=== PATIENT | female | born 1995 | race Caucasian/White ===

== ENCOUNTER 2020-01-08 00:54 | Inpatient (IN) | payer BC ==
[~2020-01-08 00:54] MED LIST: Lidocaine 1.5% with EPINEPHrine 1:200,000 5 ML Amp ONE
[2020-01-08] MEDS ORDERED: Sodium Chloride 0.9% 10 ML Syringe FLUSH PRN (11:19)
[2020-01-08] MEDS ORDERED: Ondansetron 4 MG/2 ML SDV IVPUSH PRN ×2 (11:19→12:46)
[2020-01-08] MEDS ORDERED: Ampicillin 2 GM in Sodium Chloride 0.9% 100 ML IV ONE (11:30)
[2020-01-08] MEDS ORDERED: Oxytocin/Lactated Ringers 10 UNIT/1,000 ML BAG IV SCH (11:30)
[2020-01-08] MEDS: Lactated Ringers 1,000 ML IV SCH ×4 (11:37→18:56)
[2020-01-08] MEDS ORDERED: ePHEDrine 50 MG/ML SDV IVPUSH PRN (12:46)
[2020-01-08] MEDS ORDERED: fentaNYL 100 MCG/2 ML SDV EPIDUR PRN (12:46)
--- NOTE | 2020-01-08 12:48 | PCM.PREANE ---
<Magdalena Kaur Erwin - Last Filed: 01/08/20 13:03> Preanesthetic Assessment - Anesthesia/Transfusion/Family Hx Anesthesia History: No Prior Anesthesia Family History of Anesthesia Reaction: No Transfusion History: No Prior Transfusion(s) Intubation History: Unknown - Physical Assessment NPO Status Date: 01/08/20 Vital Signs: Last Vital Signs Temp 98.8 F 01/08/20 09:07 Pulse Resp 14 01/08/20 09:07 BP 111/76 01/08/20 09:07 Pulse Ox 100 01/08/20 09:07 Height: 1.63 m Weight: 81.193 kg ASA Class: 2 Mental Status: Alert & Oriented x3 - Lab Values: Laboratory Last Values WBC 15.46 K/mm3 (3.98-10.04) H 01/08/20 11:37 RBC 4.50 M/mm3 (3.98-5.22) 01/08/20 11:37 Hgb 13.3 gm/dl (11.2-15.7) 01/08/20 11:37 Hct 38.3 % (34.1-44.9) 01/08/20 11:37 MCV 85.1 fl (79.4-94.8) 01/08/20 11:37 MCH 29.6 pg (25.6-32.2) 01/08/20 11:37 MCHC 34.7 g/dl (32.2-35.5) 01/08/20 11:37 RDW Std Deviation 41.9 fL (36.4-46.3) 01/08/20 11:37 Plt Count 169 K/mm3 (182-369) L 01/08/20 11:37 MPV 11.8 fl (9.4-12.3) 01/08/20 11:37 Neut % (Auto) 86.0 % (34.0-71.1) H 01/08/20 11:37 Lymph % (Auto) 8.2 % (19.3-51.7) L 01/08/20 11:37 [place] % (Auto) 4.6 % (4.7-12.5) L 01/08/20 11:37 Eos % (Auto) 0.8 (0.7-5.8) 01/08/20 11:37 Baso % (Auto) 0.2 % (0.1-1.2) 01/08/20 11:37 Neut # (Auto) 13.30 K/mm3 (1.56-6.13) H 01/08/20 11:37 Lymph # (Auto) 1.26 K/mm3 (1.18-3.74) 01/08/20 11:37 [place] # (Auto) 0.71 K/mm3 (0.24-0.36) H 01/08/20 11:37 Eos # (Auto) 0.13 K/mm3 (0.04-0.36) 01/08/20 11:37 Baso # (Auto) 0.03 K/mm3 (0.01-0.08) 01/08/20 11:37 Manual Slide Review Normal smear 01/08/20 11:37 Urine Color Light yellow (Yellow) 01/08/20 09:45 Urine Appearance Clear (Clear) 01/08/20 09:45 Urine pH 7.0 (5.0-8.0) 01/08/20 09:45 Ur Specific [place] 1.020 (1.005-1.030) 01/08/20 09:45 Urine Protein Negative (Negative) 01/08/20 09:45 Urine Glucose (UA) Negative (Negative) 01/08/20 09:45 Urine Ketones Negative (Negative) 01/08/20 09:45 Urine Occult Blood 1+ (Negative) H 01/08/20 09:45 Urine Nitrite Negative (Negative) 01/08/20 09:45 Urine Bilirubin Negative (Negative) 01/08/20 09:45 Urine Urobilinogen 0.2 (0.2-1.0) 01/08/20 09:45 Ur Leukocyte Esterase Negative (Negative) 01/08/20 09:45 Urine RBC 0-5 /hpf (0-5) 01/08/20 09:45 Urine WBC 0-5 /hpf (0-5) 01/08/20 09:45 Ur Squamous Epith Cells 0-5 /hpf (0-5) 01/08/20 09:45 Urine Bacteria Rare /hpf (FEW) 01/08/20 09:45 Urine Mucus Not seen /hpf (FEW) 01/08/20 09:45 Above labs reviewed and noted and within acceptable ranges to proceed with epidural if desired. 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: - SUBSTANCE USE Smoking Status *Q: Never Smoker Second Hand Smoke Exposure: No Recreational Drug Use History: No - HOME MEDS Home Medications: Home Meds Calcium Carbonate/Vitamin D3 [Calcium 500 + Vit D 200 Tablet] 1 each PO DAILY [History] [id number]/Iron Fumarate/FA/DSS [ 19 Tablet] 1 each PO DAILY 01/08/20 [ History] - CURRENT (IN HOUSE) MEDS Current Meds: Current Medications Ephedrine Sulfate (Ephedrine Sulfate) 5 mg IVPUSH ASDIRECTED PRN PRN Reason: Hypotension Fentanyl (Sublimaze) 100 mcg EPIDUR Q3H PRN PRN Reason: Pain Fentanyl/Bupivacaine HCl (Fentanyl/Bupivacaine/Ns 2 Mcg-0.125% 100 Ml) 100 ml EPIDUR ASDIRECTED SYDNI Lactated Ringer's (Ringers, Lactated) 1,000 mls @ 100 mls/hr IV ASDIRECTED SYDNI Last Admin: 01/08/20 11:37 Dose: 100 mls/hr Ampicillin Sodium 1 gm/ Sodium (Chloride) 100 mls @ 200 mls/hr IV Q4H SYDNI Oxytocin/Lactated Ringer's (Pitocin In Lr 10 Units/1,000 Ml) 10 unit in 1,000 mls @ 100 mls/hr IV .CONTINUOUS SYDNI Ondansetron HCl (Zofran) 4 mg IVPUSH Q4H PRN PRN Reason: Nausea/Vomiting Ondansetron HCl (Zofran) 4 mg IVPUSH ONETIME PRN PRN Reason: Nausea/Vomiting Sodium Chloride (Saline Flush) 10 ml FLUSH ASDIRECTED PRN PRN Reason: Keep Vein Open Discontinued Medications Ampicillin Sodium 2 gm/ Sodium (Chloride) 100 mls @ 200 mls/hr IV ONETIME ONE Stop: 01/08/20 11:59 Last Admin: 01/08/20 11:38 Dose: 200 mls/hr <Aden Espinoza - Last Filed: 01/08/20 13:14> Preanesthetic Assessment - Anesthesia/Transfusion/Family Hx Anesthesia History: No Prior Anesthesia Family History of Anesthesia Reaction: No Transfusion History: No Prior Transfusion(s) - Review of Systems General: No Symptoms Pulmonary: No Symptoms Cardiovascular: No Symptoms Gastrointestinal: No Symptoms Neurological: No Symptoms Other: Reports: None - Physical Assessment Mental Status: Alert & Oriented x3 Thyro-Mental Finger Breadths: 3 Mouth Opening Finger Breadths: 3 ROM/Head Extension: Full Lungs: Clear to Auscultation, Normal Respiratory Effort Cardiovascular: Regular Rate, Regular Rhythm - Acknowledgements Anesthesia Type Planned: Epidural Pt an Appropriate Candidate for the Planned Anesthesia: Yes Alternatives and Risks of Anesthesia Discussed w Pt/Guardian: Yes Pt/Guardian Understands and Agrees with Anesthesia Plan: Yes PreAnesthesia Questionnaire - Past Health History Medical/Surgical History: Denies Medical/Surgical History
[2020-01-08] MEDS: Bupivacaine/fentaNYL/NS 100 ML Bag EPIDUR SCH ×2 (13:18→23:00)
--- NOTE | 2020-01-08 14:21 | PCM.LDHP ---
L&D History of Present Illness - General Date of Service: 01/08/20 Admit Problem/Dx: Patient Status Order with Admit Dx/Problem 01/08/20 08:31 Patient Status [ADT] Routine Admission Diagnosis/Problem Admission Diagnosis/Problem 01/08/20 14:13 Manuela is a 24-year-old 1 para 0 white female who is admitted in early labor at 37-4/7 weeks gestational age with an ALONDRA of 01/25/2020. She made cervical change from 1 cm in clinic to 3 cm, 90% effaced, very soft, -3 station , anterior position. Source of Information: Patient History Limitations: Reports: No Limitations - History of Present Illness Introduction:: Manuela is a 24-year-old 1 para 0 white female who is admitted in early labor at 37-4/7 weeks gestational age with an ALONDRA of 01/25/2020. She made cervical change from 1 cm in clinic to 3 cm, 90% effaced, very soft, -3 station , anterior position.Last evening at approximately 2100 hrs. on 01/07/2020. She is unable sleep during the course of the night. Contractions increased every 3-5 minutes by this a.m. On last evaluation in clinic her cervix was closed, 50% effaced, firm, mid position and -3 on 01/06/2020. She was uncomfortable contractions. heart tones are reassuring. We'll be doing history 1 para 0. ALONDRA 01/25/2020 is based upon a certain last menstrual which started on 04/20/2019 and was supported by 2 ultrasounds done on 07/13/2019 and 09/14/2019. Patient's menarche was at age 12. Cycles every 28 days. She has monthly cycles. She is not using any control time conception. A final ALONDRA of 04/20/2019 was certain. course. Patient was seen on a very regular basis throughout the course of the . 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 Her first visit was on 07/13/2019 at 12 weeks gestational age. She was seen regularly with normal fundal height growth, normal vital signs and an increase in weight from a pre-gravid weight of 169 to a final weight of 184 for an 11 pound weight gain. Patient plans to breast-feed. She desires an epidural in labor and delivery. laboratory testing shows blood to be A+ with a negative VT screen. Hemoglobin is 15.2 g/dL and first visit. Platelets were 217,000 at that time. She is rubella immune. Hepatitis B surface antigen and HIV assays were both negative. Chlamydia and gonorrhea assays were both negative. She is rubella immune. Second trimester labs showed hemoglobin of 12.6 g/dL. Platelets are 174,000. One-hour GTT was elevated at 145 but her 3R GTT was normal with a fasting blood sugar of 85 mg/dL, 1 hour glucose was 179, 2 hour glucose of 137 and a three-hour glucose of 58. RPR on 07/13/2019 was nonreactive. Group B strep screen was positive. Allergies: None Medications: 1. vitamins 1 daily 2. Calcium 500 mg tablets plus vitamin D daily Past medical history unremarkable past surgical history: Unremarkable Family history: Mother is alive and well as is her father. Maternal grandmother is secondary to heart disease at age 75. Maternal grandfather secondary to motor vehicle accident. Paternal grandmother and paternal grandfather secondary to cancertypes unknown. There is no other family history of cancer. No family history of bleeding or blood clotting disorders, anesthesia problems or related issues. Social history: Patient is . is [place]. 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 She does not use any significant most alcohol, drugs or tobacco. She is a college graduate. She and her live in [place], [place]. Review of systems: In general patient has no complaints than contractions which kept her awake. She is reporting good activity.. Skin: Negative Lungs: No infectious symptoms or shortness of breath Cardiovascular: No chest pain or exercise intolerance Breasts: Changes associated with .. GI: Negative : body habitus changes Musculoskeletal: Negative Neurological: Negative In general the patient is well-developed, well-nourished, pleasant female of stated age in minimal discomfort secondary to contractions. Vital signs are stable. Her blood pressure last evaluation clinic was 96/72. Weight was 180.6. heart rate is 132. Her weight prior to was 169. Height is 5 feet 4 inches. Prepregnancy body mass index was 28.3. Skin is warm dry without lesions. HEENT, neck and back within normal limits. Lungs are clear with good breath sounds in all lung alvarado. Cardiovascular exam shows regular and rhythm without murmurs. Abdomen is gravid with last fundal height in clinic 36 cm. Baby in vertex presentation.. Genital digital exam as reported above.. Extremities and neurological exam are grossly within normal limits. 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: Social & Family History - Family History Family Medical History: Noncontributory - Tobacco Use Smoking Status *Q: Never Smoker Second Hand Smoke Exposure: No - Recreational Drug Use Recreational Drug Use: No H&P Review of Systems - Review of Systems: Review Of Systems: See Below L&D Exam - Exam Exam: See Below - Vital Signs Vital Signs: Last Vital Signs Temp 37.1 C 01/08/20 09:07 Pulse Resp 14 01/08/20 09:07 BP 111/76 01/08/20 09:07 Pulse Ox 100 01/08/20 09:07 Weight: 81.193 kg - Patient Data Lab Results Last 24 hrs: Laboratory Results - last 24 hr 01/08/20 01/08/20 Range/Units 09:45 11:37 WBC 15.46 H (3.98-10.04) K/mm3 RBC 4.50 (3.98-5.22) M/mm3 Hgb 13.3 (11.2-15.7) gm/dl Hct 38.3 (34.1-44.9) % MCV 85.1 (79.4-94.8) fl MCH 29.6 (25.6-32.2) pg MCHC 34.7 (32.2-35.5) g/dl RDW Std Deviation 41.9 (36.4-46.3) fL Plt Count 169 L (182-369) K/mm3 MPV 11.8 (9.4-12.3) fl Neut % (Auto) 86.0 H (34.0-71.1) % Lymph % (Auto) 8.2 L (19.3-51.7) % [place] % (Auto) 4.6 L (4.7-12.5) % Eos % (Auto) 0.8 (0.7-5.8) Baso % (Auto) 0.2 (0.1-1.2) % Neut # (Auto) 13.30 H (1.56-6.13) K/mm3 Lymph # (Auto) 1.26 (1.18-3.74) K/mm3 [place] # (Auto) 0.71 H (0.24-0.36) K/mm3 Eos # (Auto) 0.13 (0.04-0.36) K/mm3 Baso # (Auto) 0.03 (0.01-0.08) K/mm3 Manual Slide Review Normal smear Urine Color Light yellow (Yellow) Urine Appearance Clear (Clear) Urine pH 7.0 (5.0-8.0) Ur Specific [place] 1.020 (1.005-1.030) Urine Protein Negative (Negative) Urine Glucose (UA) Negative (Negative) Urine Ketones Negative (Negative) Urine Occult Blood 1+ H (Negative) Urine Nitrite Negative (Negative) Urine Bilirubin Negative (Negative) Urine Urobilinogen 0.2 (0.2-1.0) Ur Leukocyte Esterase Negative (Negative) Urine RBC 0-5 (0-5) /hpf Urine WBC 0-5 (0-5) /hpf Ur Squamous Epith Cells 0-5 (0-5) /hpf Urine Bacteria Rare (FEW) /hpf Urine Mucus Not seen (FEW) /hpf Result Diagrams: 01/08/20 11:37 Problem List Initiated/Reviewed/Updated: Yes Orders Last 24hrs: Active Orders 24 hr Category Date Time Status Patient Status [ADT] Routine ADT 01/08/20 08:31 Active Activity as Tolerated [RC] PFP Care 01/08/20 11:19 Active Communication Order [RC] ASDIRECTED Care 01/08/20 11:19 Active Heart Tones [RC] ASDIRECTED Care 01/08/20 11:19 Active Non Stress Test [RC] PER UNIT ROUTINE Care 01/08/20 08:31 Active Non Stress Test [RC] PER UNIT ROUTINE Care 01/08/20 11:19 Active Notify Provider [RC] ASDIRECTED Care 01/08/20 12:46 Active Notify Provider [RC] PFP Care 01/08/20 11:19 Active Notify Provider [RC] PRN Care 01/08/20 11:19 Active Oxygen Therapy [RC] ASDIRECTED Care 01/08/20 12:46 Active Peripheral IV Care [RC] . DIRECTED Care 01/08/20 11:19 Active Pulse Oximetry [RC] ASDIRECTED Care 01/08/20 12:46 Active Vital Signs [RC] PER UNIT ROUTINE Care 01/08/20 08:31 Active Vital Signs [RC] PER UNIT ROUTINE Care 01/08/20 11:19 Active Regular Diet [DIET] Diet 01/08/20 Lunch Active BLOOD BANK HOLD SPECIMEN [BBK] Stat Lab 01/08/20 11:19 Ordered RAPID PLASMA REAGIN,RPR [CHEM] Routine Lab 01/08/20 11:37 Received Ampicillin 1 gm Med 01/08/20 15:30 Active Sodium Chloride 0.9% [Normal Saline] 100 ml IV Q4H Bupivacaine/fentaNYL/NS [fentaNYL/Bupivacaine/NS 2 MCG- Med 01/08/20 13:00 Active 0.125% 100 ML] 100 ml EPIDUR ASDIRECTED Lactated Ringers [Ringers, Lactated] 1,000 ml Med 01/08/20 11:30 Active IV ASDIRECTED Ondansetron [Zofran] Med 01/08/20 12:46 Active 4 mg IVPUSH ONETIME PRN Ondansetron [Zofran] Med 01/08/20 11:19 Active 4 mg IVPUSH Q4H PRN Oxytocin/Lactated Ringers [Pitocin in LR 10 Units/1,000 Med 01/08/20 11:30 Active ML] 10 unit in 1,000 ml IV .CONTINUOUS Sodium Chloride 0.9% [Saline Flush] Med 01/08/20 11:19 Active 10 ml FLUSH ASDIRECTED PRN ePHEDrine [ePHEDrine sulfate] Med 01/08/20 12:46 Active 5 mg IVPUSH ASDIRECTED PRN fentaNYL [Sublimaze] Med 01/08/20 12:46 Active 100 mcg EPIDUR Q3H PRN Electronic Heart Tones Ext w TOCO [WOMSER] Oth 01/08/20 11:19 Ordered Routine Electronic Heart Tones Internal [WOMSER] Per Unit Oth 01/08/20 11:19 Ordered Routine Peripheral IV Insertion Adult [OM.PC] Routine Oth 01/08/20 11:19 Ordered Resuscitation Status Routine Resus Stat 01/08/20 08:31 Ordered Medication Orders Ephedrine Sulfate (Ephedrine Sulfate) 5 mg IVPUSH ASDIRECTED PRN PRN Reason: Hypotension Fentanyl (Sublimaze) 100 mcg EPIDUR Q3H PRN PRN Reason: Pain Last Admin: 01/08/20 13:18 Dose: 100 mcg Fentanyl/Bupivacaine HCl (Fentanyl/Bupivacaine/Ns 2 Mcg-0.125% 100 Ml) 100 ml EPIDUR ASDIRECTED [facility] Last Admin: 01/08/20 13:18 Dose: 100 ml Lactated Ringer's (Ringers, Lactated) 1,000 mls @ 100 mls/hr IV ASDIRECTED [facility] Last Admin: 01/08/20 13:52 Dose: 100 mls/hr Infusion: 01/08/20 13:52 Dose: 100 mls/hr Admin: 01/08/20 13:46 Dose: 100 mls/hr Infusion: 01/08/20 13:46 Dose: 100 mls/hr Admin: 01/08/20 11:37 Dose: 100 mls/hr Ampicillin Sodium 1 gm/ Sodium (Chloride) 100 mls @ 200 mls/hr IV Q4H [facility] Oxytocin/Lactated Ringer's (Pitocin In Lr 10 Units/1,000 Ml) 10 unit in 1,000 mls @ 100 mls/hr IV .CONTINUOUS [facility] Ondansetron HCl (Zofran) 4 mg IVPUSH Q4H PRN PRN Reason: Nausea/Vomiting Ondansetron HCl (Zofran) 4 mg IVPUSH ONETIME PRN PRN Reason: Nausea/Vomiting Sodium Chloride (Saline Flush) 10 ml FLUSH ASDIRECTED PRN PRN Reason: Keep Vein Open Assessment/Plan Comment:: 1. 37-4/7 week intrauterine , active labor with cervical change, artificial rupture membranes was clear amniotic fluid. 2. Group B strep screen positive. Patient has received her first dose of Of ampicillin. 3. Patient plans to breast-feed. 4. Patient is rubella immune. Her T dap was given on 11/11/2019. She has had her hepatitis B and her meningococcal immunizations in 2015 2010 respectively. Most recent RPR was nonreactive. Plan: 1. Anticipate normal spontaneous vaginal delivery. 2. Epidural for labor analgesia 3. Support breast-feeding decision 4. Routine labor care. 5. CBC and RPR upon admission per routine and because of desire for epidural.
[2020-01-08] MEDS: Ampicillin 1 GM in Sodium Chloride 0.9% 100 ML IV SCH ×3 (15:29→23:40)
[2020-01-09] MEDS ORDERED: Oxytocin/Lactated Ringers 10 UNIT/1,000 ML BAG IV SCH (00:15)
--- NOTE | 2020-01-09 01:18 | PCM.SN ---
- Free Text/Narrative Note: Stage I -Patient presented in labor. Epidural anesthesia Progressed to complete with overall reassuring FHT. Stage II - of viable female, weight 6#2oz, 8/9 APGARS at 0054. Head delivered in controlled manner over intact perineum. Body and shoulders without difficulty. To maternal abdomen. Cord clamped and cut. To warmer. Stage III - of intact placenta. 3vc. Small 2nd degree laceration. EBL 200.
[2020-01-09] MEDS ORDERED: Ibuprofen 600 MG Tab PO PRN (03:00)
[2020-01-09] MEDS ORDERED: Benzocaine/Menthol 20%-0.5% Spray 56 GM Canister TOP PRN (03:00)
[2020-01-09] MEDS ORDERED: Docusate Sodium 100 MG Cap PO PRN (03:00)
[2020-01-09] MEDS ORDERED: Witch Hazel Medicated Pads 40/Jar TOP PRN (03:00)
--- NOTE | 2020-01-09 09:26 | PCM48HPAN ---
Post Anesthesia Note - EVALUATION WITHIN 48HRS OF ANESTHETIC Vital Signs in Normal Range: Yes Patient Participated in Evaluation: Yes Respiratory Function Stable: Yes Airway Patent: Yes Cardiovascular Function Stable: Yes Hydration Status Stable: Yes Pain Control Satisfactory: Yes Nausea and Vomiting Control Satisfactory: Yes Mental Status Recovered: Yes Vital Signs: Last Vital Signs Temp 37.1 C 01/08/20 09:07 Pulse Resp 14 01/08/20 09:07 BP 111/76 01/08/20 09:07 Pulse Ox 100 01/08/20 09:07
--- NOTE | 2020-01-10 08:08 | PCM.DCSUM1 ---
Discharge Summary - Hospital Course Brief History: Admitted at 37 weeks in labor Diagnosis: Stroke: No - Discharge Data Discharge Date: 01/10/20 Discharge Disposition: Home, Self-Care 01 Condition: Good - Referral to Home Health Primary Care Physician: Osmany Colon MD - Patient Summary/Data Hospital Course: Stage I -Patient presented in labor. Epidural anesthesia Progressed to complete with overall reassuring FHT. Stage II - of viable female, weight 6#2oz, 8/9 APGARS at 0054. Head delivered in controlled manner over intact perineum. Body and shoulders without difficulty. To maternal abdomen. Cord clamped and cut. To warmer. Stage III - of intact placenta. 3vc. Small 2nd degree laceration. EBL 200. - Patient Instructions Diet: Usual Diet as Tolerated Activity: No Strenuous Activities Activity, Other: pelvic rest Driving: May Drive Today Notify Provider of: Fever, Increased Pain, Swelling and Redness, Drainage, Nausea and/or Vomiting - Discharge Plan *PRESCRIPTION DRUG MONITORING PROGRAM REVIEWED*: No *COPY OF PRESCRIPTION DRUG MONITORING REPORT IN PATIENT URIAH: No Home Medications: Home Meds Calcium Carbonate/Vitamin D3 [Calcium 500 + Vit D 200 Tablet] 1 each PO DAILY [History] [id number]/Iron Fumarate/FA/DSS [ 19 Tablet] 1 each PO DAILY 01/08/20 [ History] Referrals: Osmany Colon MD [Primary Care Provider] - (2 weeks) - Discharge Summary/Plan Comment DC Time >30 min.: No - General Info Date of Service: 01/10/20 Functional Status: Reports: Pain Controlled - Review of Systems General: Reports: No Symptoms HEENT: Reports: No Symptoms Pulmonary: Reports: No Symptoms Cardiovascular: Reports: No Symptoms Gastrointestinal: Reports: No Symptoms Genitourinary: Reports: No Symptoms Musculoskeletal: Reports: No Symptoms Skin: Reports: No Symptoms Neurological: Reports: No Symptoms Psychiatric: Reports: No Symptoms - Patient Data Vitals - Most Recent: Last Vital Signs Temp 36.6 C 01/10/20 05:05 Pulse 70 01/10/20 05:05 Resp 16 01/10/20 05:05 BP 120/73 01/10/20 05:05 Pulse Ox 98 01/10/20 05:05 Weight - Most Recent: 81.193 kg Med Orders - Current: Current Medications Benzocaine/Menthol (Dermoplast Pain Relief Victor) 0 gm TOP ASDIRECTED PRN PRN Reason: Perineal Comfort Measure Last Admin: 01/09/20 03:06 Dose: 1 can Docusate Sodium (Colace) 100 mg PO BID PRN PRN Reason: Constipation Ibuprofen (Motrin) 600 mg PO Q4H PRN PRN Reason: Mild pain or fever Witch Sophia (Tucks) 1 pad TOP ASDIRECTED PRN PRN Reason: Pain Last Admin: 01/09/20 03:06 Dose: 1 container Discontinued Medications Ephedrine Sulfate (Ephedrine Sulfate) 5 mg IVPUSH ASDIRECTED PRN PRN Reason: Hypotension Fentanyl (Sublimaze) 100 mcg EPIDUR Q3H PRN PRN Reason: Pain Last Admin: 01/08/20 13:18 Dose: 100 mcg Fentanyl/Bupivacaine HCl (Fentanyl/Bupivacaine/Ns 2 Mcg-0.125% 100 Ml) 100 ml EPIDUR ASDIRECTED SYDNI Last Admin: 01/08/20 23:00 Dose: 100 ml Ampicillin Sodium 2 gm/ Sodium (Chloride) 100 mls @ 200 mls/hr IV ONETIME ONE Stop: 01/08/20 11:59 Last Admin: 01/08/20 11:38 Dose: 200 mls/hr Lactated Ringer's (Ringers, Lactated) 1,000 mls @ 100 mls/hr IV ASDIRECTED SYDNI Last Admin: 01/08/20 18:56 Dose: 100 mls/hr Ampicillin Sodium 1 gm/ Sodium (Chloride) 100 mls @ 200 mls/hr IV Q4H [facility] Last Admin: 01/08/20 23:40 Dose: 200 mls/hr Oxytocin/Lactated Ringer's (Pitocin In Lr 10 Units/1,000 Ml) 10 unit in 1,000 mls @ 100 mls/hr IV .CONTINUOUS SYDNI Oxytocin/Lactated Ringer's (Pitocin In Lr 10 Units/1,000 Ml) 10 unit in 1,000 mls @ 12 mls/hr IV TITRATE SYDNI; Protocol Last Titration: 01/09/20 00:38 Dose: 4 munits/min, 24 mls/hr Ondansetron HCl (Zofran) 4 mg IVPUSH Q4H PRN PRN Reason: Nausea/Vomiting Ondansetron HCl (Zofran) 4 mg IVPUSH ONETIME PRN PRN Reason: Nausea/Vomiting Sodium Chloride (Saline Flush) 10 ml FLUSH ASDIRECTED PRN PRN Reason: Keep Vein Open - Exam General: Reports: Alert, Oriented HEENT: Reports: Pupils Equal, Pupils Reactive, EOMI, Mucous Membr. Moist/[place] Neck: Reports: Supple Lungs: Reports: Clear to Auscultation, Normal Respiratory Effort Cardiovascular: Reports: Regular Rate, Regular Rhythm GI/Abdominal Exam: Normal Bowel Sounds, Soft, Non-Tender, No Organomegaly, No Distention, No Abnormal Bruit, No Mass, Pelvis Stable Rectal (Female) Exam: Normal Exam, Normal Rectal Tone Back Exam: Reports: Normal Inspection, Full Range of Motion Extremities: Normal Inspection, Normal Range of Motion, Non-Tender, No Pedal Edema, Normal Capillary Refill Skin: Reports: Warm, Dry, Intact Wound/Incisions: Reports: Healing Well Neurological: Reports: No New Focal Deficit Psy/Mental Status: Reports: Alert, Normal Affect, Normal Mood
== END 2020-01-10 09:26 | disposition home or self-care (01) | DRG 560 ==
LOC: JD.OB 00:54 → OBSVTOIN 01-09 00:54 → JD.OB 01-09 00:55
PROVIDERS: ADMIT Obstetrics & Gynecology; ATTEND Obstetrics & Gynecology
PROC: 10E0XZZ Delivery of Products of Conception, External Approach (ICD-10-PCS; principal; 2020-01-09)
PROC: 10907ZC Drainage of Amniotic Fluid, Therapeutic from Products of Conception, Via Natural or Artificial Opening (ICD-10-PCS; 2020-01-09)
PROC: 0KQM0ZZ Repair Perineum Muscle, Open Approach (ICD-10-PCS; 2020-01-09)
PROC: 3E0R3BZ Introduction of Anesthetic Agent into Spinal Canal, Percutaneous Approach (ICD-10-PCS; 2020-01-09)
DX: O99.824 Streptococcus B carrier state complicating childbirth (principal); Z3A.37 37 weeks gestation of pregnancy; Z37.0 Single live birth; Z79.899 Other long term (current) drug therapy; O70.1 Second degree perineal laceration during delivery
CPT/HCPCS: 36415; 51702; 59025; 59409; 81001; 85025; 86592; J0290; J2590; J3010; J7050; J7120

== ENCOUNTER 2022-01-06 10:39 | Emergency (ER) | payer BC ==
[2022-01-06] MEDS ORDERED: Sodium Chloride 0.9% 10 ML Syringe FLUSH PRN (11:14)
== END 2022-01-06 14:00 | disposition home or self-care (01) ==
LOC: JD.ED 10:39
DX: O20.9 Hemorrhage in early pregnancy, unspecified (principal); Z3A.14 14 weeks gestation of pregnancy
CPT/HCPCS: 36415; 76815; 76815-26; 81003; 84702; 85025; 86900; 86901; 99284; 99284-25